=== PATIENT | male | born 1960 | race Two or more races ===

== ENCOUNTER 2023-12-13 00:52 | Emergency (ER) | payer OTHER ==
[~2023-12-13] VITALS: Ht 182.9 cm; Wt 204.0 kg
[2023-12-13 01:56] LABS: BASOPHILS % (AUTO) 0.4 % (0.0-2.0); EOSINOPHILS % (AUTO) 0.9 % (1.0-6.0); HEMATOCRIT 38.6 % (41-53); HEMOGLOBIN 12.4 g/dL (13.5-17.5); LYMPHOCYTES # (AUTO) 1.2 K/uL (1.0-4.8); LYMPHOCYTES % (AUTO) 16.2 % (22.0-44.0); MEAN CORPUSCULAR HGB CONC 32.2 G/dL (31.0-37.0); MEAN CORPUSCULAR VOLUME 78 fL (80-100); MONOCYTES # (AUTO) 0.7 K/uL (0.1-1.0); MONOCYTES % (AUTO) 10.1 % (2.0-9.0); NEUTROPHILS # (AUTO) 5.3 K/uL (1.8-7.7); NEUTROPHILS % (AUTO) 72.4 % (40.0-70.0); PLATELET COUNT (AUTO) 255 K/uL (150-450); RED BLOOD CELL COUNT(AUTO) 4.97 MIL/uL (4.50-5.90); RED CELL DISTRIBUTION WIDTH 19.5 % (11.5-14.5); WHITE BLOOD COUNT (AUTO) 7.3 K/uL (4.5-11.0)
[2023-12-13 02:00] LABS: CALCIUM, TOTAL 9.2 mg/dL (8.8-10.5); CREATININE 1.81 mg/dL (0.60-1.30); POTASSIUM 4.1 mmol/L (3.5-5.1)
[2023-12-13 02:01] LABS: RBC MORPHOLOGY COMMENT ABNORMAL RBC MORPH
[2023-12-13 02:05] LABS: ALBUMIN 2.9 g/dL (3.4-5.0); BILIRUBIN,TOTAL 0.4 mg/dL (0.1-1.0); TOTAL PROTEIN, SERUM 8.1 g/dL (6.4-8.2)
[2023-12-13 02:08] LABS: TROPONIN I-HIGH SENSITIVITY 28 ng/L (<76)
[2023-12-13] MEDS: NITROGLYCERIN 0.4 MG SUBLINGUAL TABLET #25 SL ONE (02:15)
[2023-12-13] MEDS: FUROSEMIDE 20 MG/2 ML VIAL IVP ONE (05:10)
[2023-12-13] MEDS: NITROGLYCERIN 2% (1 GM=INCH) OINTMENT PACKET TP ONE (05:13)
[2023-12-13 05:38] LABS: COVID AG,FIA SOURCE NASAL SWAB
[2023-12-13 06:14] LABS: SARS-COV2 (COVID) ANTIGEN,FIA Negative (Negative)
[2023-12-13 06:29] VITALS: TEMP 97.8
[2023-12-13 07:00] VITALS: BP 149/73; PULSE 75; RESP 18
== END 2023-12-13 08:39 | disposition short-term general hospital (02) ==
LOC: EMS 00:54
DX: R07.9 Chest pain, unspecified (principal); E66.01 Morbid (severe) obesity due to excess calories; I11.0 Hypertensive heart disease with heart failure; I50.9 Heart failure, unspecified; Z68.44 Body mass index [BMI] 60.0-69.9, adult; Z20.822 Contact with and (suspected) exposure to COVID-19
CPT/HCPCS: 99285; 96374; 71045; 87426; 80053; 83880; 84484; 85025; 93005; J1940; 36415-L1; 36415-TC